=== PATIENT | male | born 1955 | race Caucasian/White ===

== ENCOUNTER 2023-04-23 09:36 | Day surgery (SDC) | payer OTHER, SELFPAY ==
[2023-04-15 09:54] VITALS: BMI 32.9
[2023-04-23] VITALS (15 sets, daily range): BP systolic 103–158; BP diastolic 58–74; BMI 31.0
[2023-04-23] MEDS: NSS 286 ML IV (10:49)
[2023-04-23] MEDS: LOW STRENGTH ASPIRIN 81 MG PO (10:55)
--- NOTE | 2023-04-23 12:31 | ITS.CL.CATH ---
[employer] - Catheterization
Cardiac Catheterization
Procedure Report:
CARDIAC CATHETERIZATION REPORT
Date of Procedure: 04/23/2023
Referring: Hasmukh López MD
Indication: Hypertrophic cardiomyopathy with valvular aortic stenosis and exertional dyspnea
HEMODYNAMIC DATA
AO: 129/62
LV: 145/7
PCWP: 11
PA: 34/16
RV: 40/8
RA: 7
Oximetry: Ao 94%, PA 68%, cardiac output 5.0, cardiac index 2.4
There is a resting gradient of 35 mmHg across the LVOT and aortic valve. With provocative maneuvers the gradient increases to 105 mmHg with PVC and 40 mmHg with Valsalva
Using and endhole catheter the valvular gradient is 16 mmHg mean
LEFT VENTRICULOGRAPHY: Borderline anterolateral hypokinesis with EF 57%
CORONARY ANGIOGRAPHY
Dominance: Right
Left Main: Normal
LAD: Mild luminal irregularities in the LAD proper. The first diagonal branch has 40% mid stenosis.
Circumflex: Mild luminal irregularities
RCA: Dominant vessel with tandem 40% and 20% distal stenoses. The RCA terminates with a large PDA and a moderate-sized posterolateral branch
Closure Device: None-the procedure was performed via the right radial artery and right femoral vein. The Db's test was normal prior to the procedure.
Radiation dose (mGy): 490
DAP (cm2.Gy): 50.9
Fluoroscopy time: 5.7 minutes
CONCLUSIONS:
1. Top normal filling pressures with no significant pulmonary hypertension
2. LVOT obstruction with baseline resting gradient of 35 mmHg which increases to 105 mmHg post PVC and 40 mmHg with Valsalva
3. Mild aortic stenosis with mean valvular gradient of 16 mmHg
4. Mild CAD as described
5. Borderline anterolateral hypokinesis with EF 57%
RECOMMENDATIONS: Consider adding medical therapy for LVOT obstruction (beta-mandy or diltiazem). Given the mild CAD, he should be on aspirin and high intensity statin therapy
Copy to: Hasmukh López MD, Ronald Reid MD
Jan Webster MD, [facility], [facility]
[2023-04-23] MEDS: NSS 1000 IV (12:35)
== END 2023-04-23 16:20 | disposition home or self-care (01) ==
LOC: CATH 09:36
PROVIDERS: ATTENDING PHYSICIAN Internal Medicine Cardiovascular Disease; FAMILY PHYSICIAN Family Medicine; OTHER PHYSICIAN Internal Medicine Cardiovascular Disease
DX: I42.2 Other hypertrophic cardiomyopathy (principal); R06.09 Other forms of dyspnea; I35.0 Nonrheumatic aortic (valve) stenosis; I49.3 Ventricular premature depolarization; I25.10 Atherosclerotic heart disease of native coronary artery without angina pectoris; I10 Essential (primary) hypertension; E78.5 Hyperlipidemia, unspecified; E11.9 Type 2 diabetes mellitus without complications
CPT/HCPCS: 93460; C1894; Q9967

== ENCOUNTER 2023-05-08 06:48 | Emergency (ER) | payer OTHER, SELFPAY ==
[2023-05-08 06:50] VITALS: BP 175/81
[2023-05-08 07:31] LABS: Urine Albumin Negative (Neg - Trace); Urine Bilirubin Negative (Negative); Urine Character Clear (Clear); Urine Color Yellow; Urine Glucose Negative (Negative); Urine Ketone Negative (Negative); Urine Leukocyte Negative (Negative); Urine Nitrite Negative (Negative); Urine Occult Blood 4+ (Negative); Urine Urobilinogen Negative (Neg - 1+)
--- NOTE | 2023-05-08 07:41 | ED.GENMED ---
History of Present Illness
General
Chief Complaint: Flank Pain
Source: patient
Exam Limitations: none
Time Seen by Provider: 05/08/23 07:18
Travel History
Have you had any contact with someone who has COVID-19?: No
Do you have any symptoms of coronavirus? Fever > 100 degrees, chills, cough, shortness of breath, sore throat, loss of taste or smell, muscle aches, or headache?: No
History of Present Illness
History of Present Illness:
67-year-old male with history of hypertension aortic stenosis and cardiomyopathy presents complaining of a sudden onset right flank pain 2 nights ago. Sharp stabbing in nature associate with nausea and vomiting and has been intermittent since. No
obvious hematuria. He states this is reminiscent of prior kidney stone he has had in the past. No chest pain or shortness of breath. No other complaints at this time
Past History
Past History
ED Past Medical History: HTN and Other
ED Past Surgical History: Orthopedic
Social History
Tobacco: Non-smoker
Personal:
Living: with family
Phy Exam
Physical Exam
Physical Exam:
General: Well-appearing male no acute respiratory distress
HEENT: Normocephalic atraumatic
Heart: Regular rate and rhythm
Lungs: Clear no wheezing
Abdomen: Right sided costovertebral angle tenderness to percussion negative [place] sign no guarding rebound normal bowel sounds also slightly tender in the suprapubic region
Extremities: No cyanosis
Course
Orders/Labs/Results
Orders:
Orders
05/08/23 07:18
Urinalysis Reflex To Culture Urgent
Date Specimen was Collected: 05/08/23
Time Specimen was Collected: 07:17
Urine Microscopic Reflex Cult Urgent
05/08/23 07:37
CT Abd/pel Without Iv Or Oral Urgent
Comment:
Reason For Exam: right flank pain
05/08/23 07:38
Ketorolac [Toradol] 15 mg IV NOW STA
05/08/23 07:48
Complete Blood Count/With Diff Urgent
Comprehensive Metabolic Panel Urgent
Abnormal Lab Results
05/08/23 05/08/23
07:18 07:48
WBC 15.4 H 10^3/uL
(4.8-10.8)
Abs Immat Gran (auto) 0.1 H 10^3/uL
(0-0.05)
Absolute Neuts (auto) 13.2 H 10^3/uL
(1.4-6.5)
Absolute Lymphs (auto) 0.8 L 10^3/uL
(1.2-3.4)
Absolute Monos (auto) 1.2 H 10^3/uL
(0.1-0.6)
Immature Gran % 0.6 H %
(0-0.5)
Neutrophils % 85.6 H %
(42.2-75.2)
Lymphocytes % 5.5 L %
(20.5-51.1)
BUN 28 H mg/dl
(9-20)
Glucose 152 H mg/dl
(70-99)
Ur Occult Blood Reflex 4+ A
(Negative)
Urine RBC 16-20 A /HPF
(0-2)
Urine Bacteria (Reflex) Few A
(Negative)
05/08/23 07:48
05/08/23 07:48
Vital Signs
Initial and Last Documented VS:
Initial Vital Signs
Temp Pulse Resp BP Pulse Ox
99.3 F 55 16 175/81 95
05/08/23 06:50 05/08/23 06:50 05/08/23 06:50 05/08/23 06:50 05/08/23 06:50
Last Documented Vital Signs
Temp Pulse Resp BP Pulse Ox
99.3 F 55 16 175/81 95
05/08/23 06:50 05/08/23 06:50 05/08/23 06:50 05/08/23 06:50 05/08/23 06:50
MDM/Problems Addressed
Differential Diagnosis Includes:
Right flank pain. Differential could include renal colic versus biliary colic symptoms not typical of appendicitis
Check labs and urine. Toradol given for pain CT pending
*Critical Care Note
Total Time (30-74mins, 75-104mins- exclusive of procedures): Not Applicable
Update Note
Update Note:
CT demonstrates 3 mm stone in the proximal right ureter with mild hydronephrosis. UA without infection. Patient feeling much better after Toradol. Resting comfortably no vomiting. Will discharge home with pain management and return precautions
and urology follow-up.
ED Attending Note
-
Portions of this chart may have been created with voice recognition software.� Occasional wrong word or��sound alike� substitutions may have occurred due to the inherent limitations of voice recognition software.
Discharge Plan
Departure
Patient Disposition: Home (Routine Discharge)
Date of Disposition: 05/08/23
Time of Disposition: 09:42
Patient with high blood pressure during this ER visit?: No
Discharge Problem:
Kidney stone
Instructions: Kidney Stones (DC)
Prescriptions:
New
hydrocodone-acetaminophen 5-325 mg tablet
1 tab PO Q8H PRN (Reason: Pain) Qty: 10 0RF
ondansetron 4 mg tablet,disintegrating
4 mg PO Q8H PRN (Reason: nausea and vomiting) Qty: 10 0RF
tamsulosin [Flomax] 0.4 mg capsule
0.4 mg PO DAILY Qty: 14 0RF
No Action
fluoxetine 40 mg Capsule
40 mg PO DAILY
amlodipine 2.5 mg Tablet
2.5 mg PO DAILY
aspirin 81 mg Tablet,Chewable
81 mg PO DAILY
lisinopril 40 mg Tablet
40 mg PO DAILY
Referrals:
Jan Cisneros MD [Active] -
Ronald Reid MD [Family Provider] -
Activity Restrictions/Additional Instructions:
Drink plenty fluids. Use medicine as needed for pain or nausea. Please return here for fever inability keep things down increasing pain or other concerning findings. Follow-up with urology otherwise
Interventions
Interventions:
*ED COVID-19 Vaccine History Last Done: 05/08/23 06:50
[2023-05-08 07:51] LABS: Urine Bacteria Few (Negative); Urine Red Blood Cell 16-20 /HPF (0-2); Urine Squamous Cell 0-2 /LPF (Few); Urine White Cell 0-2 /HPF (0-5)
[2023-05-08] MEDS: TORADOL 15 MG IV (07:54)
[2023-05-08 08:07] LABS: % Basophils 0.2 % (0-2); % Eosinophils 0.5 % (0-6); % Immature Granulocytes 0.6 % (0-0.5); % Lymphocytes 5.5 % (20.5-51.1); % Monocytes 7.6 % (1.7-9.3); % Neutrophils 85.6 % (42.2-75.2); Absolute Eosinophils 0.1 10^3/uL (0-0.7); Absolute Immature Granulocytes 0.1 10^3/uL (0-0.05); Absolute Lymphocytes 0.8 10^3/uL (1.2-3.4); Absolute Monocytes 1.2 10^3/uL (0.1-0.6); Absolute Neutrophils 13.2 10^3/uL (1.4-6.5); Hemoglobin 14.2 g/dL (13.0-18.0); Mean Corp Hgb Conc. 35.5 g/dL (33.0-37.0); Mean Corpuscular Hgb 29.3 pg (27.0-31.0); Mean Corpuscular Volume 82.6 fL (80.0-94.0); Nucleated Red Blood Cells % 0 % (-); Platelet Count 188 10^3/uL (130-400); Red Blood Cell Count 4.84 10^6/uL (4.70-6.10); Red Cell Dist. Width 13.5 % (11.5-14.5); White Blood Cell Count 15.4 10^3/uL (4.8-10.8)
[2023-05-08 08:16] LABS: ALT (SGPT) 21 U/L (0-50); AST (SGOT) 22 U/L (17-59); Albumin 3.9 g/dl (3.5-5.0); Alkaline Phosphatase 55 U/L (38-126); Blood Urea Nitrogen 28 mg/dl (9-20); Calcium 9.1 mg/dl (8.4-10.2); Carbon Dioxide 26 mmol/L (22-30); Chloride 101 mmol/L (98-107); Glucose 152 mg/dl (70-99); Potassium 4.2 mmol/L (3.5-5.1); Sodium 137 mmol/L (135-145); Total Bilirubin 0.9 mg/dl (0.2-1.3); Total Protein 6.6 g/dl (6.3-8.2); eGFR 59.84
[2023-05-08 09:58] VITALS: BP 144/72
== END 2023-05-08 09:59 | disposition home or self-care (01) ==
LOC: EMR 06:48
PROVIDERS: Physician Assistant; EMERGENCY PHYSICIAN Emergency Medicine; FAMILY PHYSICIAN Family Medicine
DX: N13.2 Hydronephrosis with renal and ureteral calculous obstruction (principal); I10 Essential (primary) hypertension; I42.9 Cardiomyopathy, unspecified; Z87.442 Personal history of urinary calculi
CPT/HCPCS: 99284; 96374; 74176; 80053; 81003; 81015; 85025

== ENCOUNTER → 2023-06-21 14:13 | Outpatient (REF) | payer OTHER, SELFPAY | LOC: RAD 14:13 | PROVIDERS: ATTENDING PHYSICIAN Internal Medicine Cardiovascular Disease; FAMILY PHYSICIAN Family Medicine | DX: I10 Essential (primary) hypertension (principal) | CPT/HCPCS: 76770 ==

== ENCOUNTER 2024-07-07 06:31 | Day surgery (SDC) | payer OTHER, SELFPAY ==
[2024-07-07] VITALS (9 sets, daily range): BP systolic 106–143; BP diastolic 59–69; BMI 32.5
[2024-07-07 09:45] LABS: ACT-LR - POC 369 Seconds (116-155)
--- NOTE | 2024-07-07 10:13 | ITS.CL.CATH ---
[employer]visor - Catheterization
Cardiac Catheterization
Procedure Report:
CARDIAC CATHETERIZATION REPORT
Date of Procedure: 07/07/2024
Referring: Hiren Lowe M.D.
Indication: Chest discomfort, abnormal stress test, hypertrophic cardiomyopathy.
PROCEDURE:
1. Right heart catheterization.
2. Coronary angiography.
3. Left heart catheterization.
4. Successful IFR of the mid LAD.
5. Successful IFR of the distal RCA.
A total of 0 minutes of procedural/moderate sedation was utilized. An independent medical director of hospice was present to assist with and help manage the patient's level of consciousness and physiologic status.
ACCESS:
1. 6 Brazilian right radial artery using modified Seldinger technique under ultrasound guidance. Ultrasound image obtained.
2. 6 Brazilian right antecubital vein using a modified Seldinger technique under ultrasound guidance. Ultrasound image obtained.
CATHETERS:
1. 5 Brazilian 90 cm thermodilution balloon wedge.
2. 5 Brazilian JR4.
3. 5 Brazilian JL 4.
4. 6 Brazilian EBU 3.75 guiding catheter.
5. 6 Brazilian JR4 guiding catheter.
HEMODYNAMIC DATA
Weight (kg): 99.3
AO (s/d/x, mmHg): 124/60/85
LV (s/x, mmHg): 140/15
PCWP (a/v/x, mmHg): 18/19/17
PA (s/d/x, mmHg): 30//24
RV (s/x, mmHg): 30/14
RA (a/v/x, mmHg): 16/16/14
SVC SvO2 (%): 70.4
IVC SvO2 (%): Not obtained.
RA SvO2 (%): Not obtained.
RV SvO2 (%): Not obtained.
PA SvO2 (%): 69.8
SaO2 (%): 98.1
Hbg (g/dL): 14.2
AJAY
CO (L/min): 4.22
CI (L/min/m2): 1.97
Thermodilution
CO (L/min): Not performed.
CI (L/min/m2): Not performed.
TPG (mmHg): 7
PVR ([place] Units): 1.66
SVR (dynes*seconds*cm^-5): 1346
AVO2 Diff (Volume %): 5.47
AV gradient (x, mmHg): 16 mmHg (peak to peak)
AV area (cm2): Probably mildly narrowed.
MV gradient (x, mmHg): Not obtained.
MV area (cm2): Not obtained.
LEFT VENTRICULOGRAPHY: Not performed.
AORTOGRAPHY: Not performed.
CORONARY ANGIOGRAPHY
Dominance: Right.
Left Main: Large size, trifurcating vessel. There is no coronary artery disease.
LAD: Normal size vessel giving rise to a single large diagonal. There is a hazy, 40% lesion in the mid LAD. There is a 30-40% lesion in the proximal diagonal immediately after it bifurcates into 2 daughter vessels.
Ramus: Large size vessel supplying the majority of the lateral wall. There is no coronary artery disease.
Circumflex: Relatively small vessel giving rise to several small obtuse marginals. There is no coronary artery disease.
RCA: Large size, dominant vessel with a significant posterolateral arcade. There is a 20% lesion in the mid vessel. There is a 60% lesion in the distal RCA, immediately proximal to the origin of the RPDA.
INTERVENTIONS
1. Successful IFR of the 40% mid LAD lesion, demonstrating nonocclusive disease (IFR = 0.93).
2. Successful IFR of the 60% distal RCA lesion, demonstrating nonocclusive disease (IFR = 0.98).
Narrative:
The decision was made to perform physiologic testing. The diagnostic catheter was removed over a wire and exchanged for a(n) 6 Brazilian EBU 3.75 guiding catheter. The guiding catheter was advanced into the ascending aorta and seated in the left main
coronary artery. Additional heparin was given to obtain an ACT greater than 250 seconds. An iFR wire was zeroed outside of the body, then inserted into the guiding sheath. The wire was advanced and the transducer was normalized just outside of the
guiding catheter tip. The wire was advanced into the distal LAD. Three iFR measurements were taken. The first round of IFR testing was deemed to be unreliable given severe drift on pullback. The wire was renormalized and advanced into the distal
LAD again. Once again, there was significant drift downward. The wire was normalized for a third time and advanced into the distal LAD without contrast assistance. 3 iFR measurements were taken. The lesion was determined to be nonocclusive
(0.93). Pullback on this final IFR showed a much more consistent pressure reading.
We then turned our attention to the RCA. The decision was made to perform physiologic testing. The 6 Brazilian EBU 3.75 guiding catheter was removed over a wire and exchanged for a(n) 6 Brazilian JR4 guiding catheter. The guiding catheter was advanced
into the ascending aorta and seated in the right coronary artery. Additional heparin was given to obtain an ACT greater than 250 seconds. An iFR wire was zeroed outside of the body, then inserted into the guiding sheath. The wire was advanced and
the transducer was normalized just outside of the guiding catheter tip. The wire was advanced into the proximal RPDA. Three iFR measurements were taken. The lesion was determined to be nonocclusive (0.98). We did not observe significant drift on
this reading. The wire was withdrawn. Final angiography was performed showing stable coronary anatomy without disruption.
Closure Device: Vascular band for the right radial artery, manual pressure for the right antecubital vein.
Radiation dose (mGy): 991.31
DAP (cm2.Gy): 74.4907
Fluoroscopy time (minutes): 11.9
CONCLUSIONS:
1. Right dominant circulation with a nonocclusive 40% lesion in the mid LAD (IFR = 0.93), a 30-40% lesion in the proximal diagonal immediately after bifurcates into 2 daughter vessels, a 20% mid RCA lesion and a nonocclusive 60% lesion in the
distal RCA (IFR = 0.98).
2. Mildly elevated filling pressures (LVEDP = 15 mmHg, PCWP = 17 mmHg at 99.3 kg).
3. Known left ventricular hypertrophy with intracavitary gradient.
4. Probably mild aortic valve stenosis.
5. No identifiable coronary source of chest pain. False positive stress test.
RECOMMENDATIONS:
1. Expectant management after cardiac catheterization via right radial/antecubital approach.
2. Limited weight bearing on the right wrist for one week.
3. Maintain aggressive secondary prevention with evolocumab. Goal LDL <55.
4. OMT/GDMT as hemodynamics will tolerate.
5. The patient may benefit from cardiac MRI to better clarify myocardial anatomy given his known intramyocardial gradient.
Copy to: Hiren Lowe M.D., Ronald Reid M.D.
Ronald Azar DO, FACC, FACP
== END 2024-07-07 13:35 | disposition home or self-care (01) ==
LOC: CATH 06:31
PROVIDERS: ATTENDING PHYSICIAN Internal Medicine Cardiovascular Disease; FAMILY PHYSICIAN Family Medicine; OTHER PHYSICIAN Internal Medicine Cardiovascular Disease
DX: I25.10 Atherosclerotic heart disease of native coronary artery without angina pectoris (principal); R94.39 Abnormal result of other cardiovascular function study; R07.89 Other chest pain; I42.2 Other hypertrophic cardiomyopathy
CPT/HCPCS: 93799 ×2; 85347; 93460; C1769; C1894; Q9967

== ENCOUNTER → 2024-07-10 10:18 | Outpatient (REF) | payer OTHER, SELFPAY | LOC: HWRCS 10:18 | PROVIDERS: ATTENDING PHYSICIAN Internal Medicine Cardiovascular Disease; FAMILY PHYSICIAN Family Medicine | DX: I10 Essential (primary) hypertension (principal) | CPT/HCPCS: 93306 ==

== ENCOUNTER → 2024-08-31 07:48 | Outpatient (REF) | payer OTHER, SELFPAY | LOC: HWRAD 07:48 | PROVIDERS: ATTENDING PHYSICIAN Surgery; FAMILY PHYSICIAN Family Medicine | DX: N20.0 Calculus of kidney (principal) | CPT/HCPCS: 76775 ==